=== PATIENT | female | born 1955 | race Caucasian/White ===

== ENCOUNTER → 2023-10-30 12:11 | Outpatient (REF) | payer OTHER, SELFPAY | LOC: HWWDC 12:11 | PROVIDERS: ATTENDING PHYSICIAN Nurse Practitioner Family; FAMILY PHYSICIAN Internal Medicine | DX: I10 Essential (primary) hypertension (principal); Z12.31 Encounter for screening mammogram for malignant neoplasm of breast | CPT/HCPCS: 76775; 77063; 77067 ==

== ENCOUNTER → 2025-06-22 12:40 | Outpatient (REF) | payer OTHER, SELFPAY | LOC: HWWDC 12:40 | PROVIDERS: ATTENDING PHYSICIAN Family Medicine | DX: Z12.31 Encounter for screening mammogram for malignant neoplasm of breast (principal) | CPT/HCPCS: 77063; 77067 ==